=== PATIENT | male | born 1985 | race African-American/Black ===

== ENCOUNTER 2019-03-24 15:11 | Emergency (ER) | payer MEDICAID ==
[~2019-03-24] VITALS: Ht 170.2 cm; Wt 78.0 kg
[2019-03-24] MEDS ORDERED: KETOROLAC 60MG/2ML VIAL IM ONE (17:30)
[2019-03-24 19:04] VITALS: BP 120/60
== END 2019-03-24 19:06 | disposition home or self-care (01) ==
LOC: ER 15:11
DX: M89.8X8 Other specified disorders of bone, other site (principal); J45.909 Unspecified asthma, uncomplicated; Z88.0 Allergy status to penicillin
CPT/HCPCS: 71045; 93005; 96372; 99283; J1885